=== PATIENT | female | born 1955 | race Caucasian/White ===

== ENCOUNTER → 2024-07-29 | Outpatient (CLI) | payer MEDICARE, MEDICAID, SELFPAY ==
--- NOTE | 2024-07-29 13:15 | XR_ITS ---
Examination: Screening digital mammography, bilateral Computer aided detection 3-D breast Tomosynthesis, bilateral Date and time of exam: 07/29/2024, 109 Comparisons: November 2016 Indications: Screening Technique: Nonmagnified MLO, CC views of the breasts to been obtained, reconstructed from 3-D Tomosynthesis images. R2 computer aided detection program utilized for evaluation of suspicious masses and/or abnormal calcifications. 3-D Tomosynthesis images obtained. Technologist: Findings: The breasts are heterogeneously dense, which may obscure small masses. No evidence of abnormal masses or suspicious calcifications. Impression: BI-RADS category 1: Negative findings (within normal) Recommend 1 year follow-up mammogram
== END | disposition home or self-care (01) ==
PROVIDERS: PCP Physician Assistant; Referring Provider Physician Assistant; Visit Provider Physician Assistant
DX: Z12.31 Encounter for screening mammogram for malignant neoplasm of breast (principal); R92.313 Mammographic fatty tissue density, bilateral breasts
CPT/HCPCS: 77063; 77067

== ENCOUNTER → 2024-10-12 | Outpatient (CLI) | payer MEDICARE, SELFPAY ==
--- NOTE | 2024-10-12 15:29 | XR_ITS ---
Examination: Lumbar spine, 5 views Technique: Lumbar spine AP, lateral, coned lateral lower lumbar spine, bilateral obliques 5 views Exam date and time: October 12, 2024 1538 hours INDICATIONS: Low back pain several years FINDINGS: Comparison July 26, 2016 Significant osteopenia No acute lumbar fracture Moderate degenerative disc disease L5-S1 No spondylolisthesis IMPRESSION: Moderate degenerative disc disease L5-S1
--- NOTE | 2024-10-12 15:29 | XR_ITS ---
Examination: Shoulder,left, 3 views Technique: Shoulder AP internal rotation, AP external rotation, Y view shoulder, 3 views Exam date and time :October 12, 2024 1538 hours INDICATIONS: Left shoulder pain beginning several years ago. FINDINGS: Moderate osteopenia Mild narrowing glenohumeral joint No shoulder fracture or dislocation No AC joint separation IMPRESSION: Mild narrowing glenohumeral joint No fracture or dislocation
--- NOTE | 2024-10-12 15:29 | XR_ITS ---
EXAMINATION: Cervical spine, 5 views Technique: Cervical spine AP, AP odontoid, lateral, bilateral obliques, 5 views Exam date and time: October 12, 2024 1538 hours INDICATIONS: Neck pain radiating down the left arm several years FINDINGS: Satisfactory alignment cervical vertebral bodies. The cervical fracture Intact odontoid Advanced disc narrowing C4-C5, C5-C6 with mild bilateral neural foraminal stenosis IMPRESSION: Advanced degenerative disc disease C4-C5, C5-C6
== END | disposition home or self-care (01) ==
PROVIDERS: PCP Registered Nurse Community Health; Referring Provider Registered Nurse Community Health; Visit Provider Registered Nurse Community Health
DX: M50.321 Other cervical disc degeneration at C4-C5 level (principal); M51.370 Other intervertebral disc degeneration, lumbosacral region with discogenic back pain only; M25.812 Other specified joint disorders, left shoulder
CPT/HCPCS: 72050; 72110; 73030

== ENCOUNTER → 2024-10-21 | Outpatient (CLI) | payer MEDICARE, MEDICAID, SELFPAY ==
--- NOTE | 2024-10-21 13:00 | XR_ITS ---
Examination: Bone densitometry Date and time of exam:October 21, 2024 1340 hours INDICATIONS: Hysterectomy age 40, family history mother hip fracture, estrogen patch 30 years, personal history osteopenia Technique: Lumbar spine and hip total bone mineralization values of an calculated. Peak reference and age match control results have been displayed. Findings: Lumbar spine total bone mineralization is0.791 gm/cm2. This is 2.3 standard deviations below peak reference. This is 0.2 standard deviations below age-matched controls. Hip total bone mineralization is 0.731 gm/cm2 This is 1.7 standard deviations below peak reference. This is 0.2 standard deviations below age-matched controls Impression: There is osteopenia based on lumbar spine measurements. There is osteoporosis based on hip measurements Lumbar mineralization is decreased 1.0% compared with November 13, 2016 Hip mineralization is increased 3.1% compared with November 13, 2016
== END | disposition home or self-care (01) ==
PROVIDERS: PCP Registered Nurse Community Health; Referring Provider Registered Nurse Community Health; Visit Provider Registered Nurse Community Health
DX: Z13.820 Encounter for screening for osteoporosis (principal); M85.88 Other specified disorders of bone density and structure, other site; M81.0 Age-related osteoporosis without current pathological fracture
CPT/HCPCS: 77080

== ENCOUNTER → 2024-12-16 | Outpatient (CLI) | payer MEDICARE, MEDICAID, SELFPAY ==
[2024-12-16 16:44] LABS: Free T4 (Free Thyroxine) 1.21 ng/dL (0.89-1.76); Thyroid Stimulating Hormone 7.95 uIU/mL (0.55-4.78)
== END | disposition home or self-care (01) ==
LOC: COPL 14:39
PROVIDERS: PCP Registered Nurse Community Health; Referring Provider Registered Nurse Community Health; Visit Provider Registered Nurse Community Health
DX: E03.9 Hypothyroidism, unspecified (principal)
CPT/HCPCS: 36415; 84439; 84443